=== PATIENT | female | born 1965 | race Asian ===

== ENCOUNTER 2018-01-09 13:50 | Inpatient (IN) | payer MEDICAID, OTHER ==
--- NOTE | 2018-01-09 14:23 | ED ---
General Adult HPI - General Chief complaint: Psychiatric Symptoms Stated complaint: Mental Health Time Seen by Provider: 01/09/18 13:50 Source: police, RN notes reviewed Mode of arrival: wheelchair Limitations: no limitations - History of Present Illness Initial comments: Patient was brought in by the police because she was under court order petition to be evaluated patient has a history of bipolar and we were told prior to arrival she was in a manic phase. Patient would not patient was very uncooperative swearing and being very sexually inappropriate throughout my interview but I was unable to ascertain any more reliable history from the patient. Patient did however deny any physical complaints and denies any drug use or alcohol use but she did so with quite a bit of profanity. - Related Data Home Medications Medication Instructions Recorded Confirmed Unable To Assess [Unable to Assess] 01/09/18 01/09/18 Allergies Allergy/AdvReac Type Severity Reaction Status Date / Time ibuprofen [From Motrin IB] Allergy Unknown Verified 01/09/18 14:35 iodine Allergy Unknown Verified 01/09/18 14:35 Review of Systems ROS Statement: Those systems with pertinent positive or pertinent negative responses have been documented in the HPI. ROS Other: All systems not noted in ROS Statement are negative. Past Medical History Past Medical History: No Reported History History of Any Multi-Drug Resistant Organisms: None Reported Past Surgical History: Section, Tubal Ligation Past Psychological History: Bipolar, Schizophrenia Smoking Status: Former smoker Past Alcohol Use History: Occasional Past Drug Use History: Marijuana General Exam - General Exam Comments Initial Comments: GENERAL: Patient is well-developed and well-nourished. Patient is nontoxic and well- hydrated and is in no acute distress. ENT: Neck is soft and supple. No significant lymphadenopathy is noted. Oropharynx is clear. Moist mucous membranes. Neck has full range of motion without eliciting any pain. EYES: The sclera were anicteric and conjunctiva were pink and moist. Extraocular movements were intact and pupils were equal round and reactive to light. Eyelids were unremarkable. PULMONARY: Unlabored respirations. Good breath sounds bilaterally. CARDIOVASCULAR: There is a regular rate and rhythm without any murmurs gallops or rubs. ABDOMEN: Soft and nontender with normal bowel sounds. SKIN: Skin is clear with no lesions or rashes and otherwise unremarkable. NEUROLOGIC: Patient is alert and oriented difficult to tell orientation because she won't answer my questions directly however it appears that she is aware she is in a hospital unaware of who she is. Cranial nerves II through XII are grossly intact. Motor and sensory are also intact. Normal speech, volume and content. Symmetrical smile. MUSCULOSKELETAL: Normal extremities with adequate strength and full range of motion. LYMPHATICS: No significant lymphadenopathy is noted PSYCHIATRIC: Patient was in a manic state yelling and screaming profanities the whole time I was in the room. Limitations: no limitations Course Vital Signs 01/09/18 01/09/18 13:51 13:55 Temperature 98.8 F Pulse Rate 106 H Respiratory 22 Rate Blood Pressure 170/78 O2 Sat by Pulse 98 Oximetry Procedures - Restraint - Face to Face Restraint Occurrence 1 Patient's Immediate Situation: Endangers others' safety, Endangers staff safety Patient's Reaction to the Intervention: Uncooperative, Angry, Hostile, Belligerent, Bizarre Patient's Medical & Behavioral Condition: Bizarre behavior Need to Continue or Terminate Restraint or Seclusion: Continue Face to Face Eval of Restraint Date: 01/09/18 Face to Face Eval of Restraint Time: 15:40 Medical Decision Making - Lab Data Lab Results 01/09/18 Range/Units 15:39 Urine Opiates Screen Not Detected (NotDetected) Ur Oxycodone Screen Not Detected (NotDetected) Urine Methadone Screen Not Detected (NotDetected) Ur Propoxyphene Screen Not Detected (NotDetected) Ur Barbiturates Screen Not Detected (NotDetected) U Tricyclic Antidepress Not Detected (NotDetected) Ur Phencyclidine Scrn Not Detected (NotDetected) Ur Amphetamines Screen Not Detected (NotDetected) U Methamphetamines Scrn Not Detected (NotDetected) U Benzodiazepines Scrn Not Detected (NotDetected) Urine Cocaine Screen Not Detected (NotDetected) U Marijuana (THC) Screen Detected H (NotDetected) Disposition Clinical Impression: Bipolar disease, manic Disposition: ADMITTED IP TO THIS HOSP Referrals: None,Stated [Primary Care Provider] - 1-2 days Time of Disposition: 16:24
[2018-01-09] MEDS ORDERED: ZIPRASIDONE 20 MG VIAL IM STA (15:09)
[2018-01-09] MEDS ORDERED: LORazepam 2 MG/ML INJ IM STA (15:09)
[2018-01-09 16:14] LABS: Amphetamine Screen,Urine Not Detected (NotDetected); Barbiturate Screen,Urine Not Detected (NotDetected); Benzodiazepines Screen,Urine Not Detected (NotDetected); Cocaine Screen,Urine Not Detected (NotDetected); Methadone Screen, Urine Not Detected (NotDetected); Opiate Screen,Urine Not Detected (NotDetected); Oxycodone Screen, Urine Not Detected (NotDetected); Phencyclidine Screen,Urine Not Detected (NotDetected); Tricyclic Antidepressant,Urine Not Detected (NotDetected); Urn Cannabinoid Scrn Detected (NotDetected)
[2018-01-09] MEDS ORDERED: LORazepam 1 MG TAB PO PRN (19:20)
[2018-01-09] MEDS ORDERED: MAGNESIUM HYDROXIDE 2,400 MG/10 ML CUP PO PRN (19:20)
[2018-01-09] MEDS ORDERED: MAG HYDROX/AL HYDROX/SIMETH 30 ML CUP PO PRN (19:20)
[2018-01-09] MEDS ORDERED: HALOPERIDOL LACTATE 5 MG/ML 1 ML VIAL IM PRN (19:24)
[2018-01-09] MEDS ORDERED: LORazepam 2 MG/ML INJ IM PRN (19:26)
--- NOTE | 2018-01-10 00:41 | P.MDCNMH ---
History of Present Illness H&P Date: 01/10/18 Chief Complaint: Acute agitation 52-year-old female with history of bipolar disorder with manic phase protein by police due to agitation and restlessness. Patient was very loud yelling and screaming in the emergency department and had to be restrained and sedated. She did not provide much of the history. Attempt was made to evaluate the patient further mental health unit but patient was sedated and not able to proceed to obtain any significant medical history this point. Most history obtained through reviewing the chart for emergency department. It was described the patient was very agitated and very restless was using profanity and was refusing to provide much of the history. Blood work laboratory was done on her urine drug screen was positive only for marijuana. Her vital signs are stable. Rest of the blood work is pending at this point. Review of Systems ROS unobtainable: due to mental status Past Medical History Past Medical History: No Reported History History of Any Multi-Drug Resistant Organisms: None Reported Past Surgical History: Section, Tubal Ligation Past Psychological History: Bipolar, Schizophrenia Smoking Status: Former smoker Past Alcohol Use History: Occasional Past Drug Use History: Marijuana Medications and Allergies Home Medications Medication Instructions Recorded Confirmed Type No Known Home Medications 01/09/18 01/09/18 History Allergies Allergy/AdvReac Type Severity Reaction Status Date / Time ibuprofen [From Motrin IB] Allergy Unknown Verified 01/09/18 19:27 iodine Allergy Unknown Verified 01/09/18 19:27 Physical Exam Vitals: Vital Signs Temp Pulse Pulse Resp BP BP Pulse Ox 01/09/18 19:21 98.1 F 69 16 148/63 01/09/18 18:47 97.8 F 01/09/18 18:21 94 16 151/81 97 01/09/18 13:55 170/78 01/09/18 13:51 98.8 F 106 H 22 98 Intake and Output 01/09/18 01/09/18 01/10/18 14:59 22:59 06:59 Output Total 200 Balance -200 Output: Urine 200 Straight 200 Other: Weight 74.843 kg Patient is uncooperative and prefers to sleep No physical exam is possible and this point of time Cranial Nerve Examination - Cranial Nerves Cranial Nerve I- Olfactory: Intact Cranial Nerve II- Optic: Intact Cranial Nerve III- Oculomotor: Intact (Cannot be obtained precisely due to mental status) Cranial Nerve IV- Trochlear: Intact Cranial Nerve V- Trigeminal: Intact Cranial Nerve - Abducens: Intact Cranial Nerve VII- Facial: Intact Cranial Nerve VIII- Auditory: Intact Cranial Nerve IX- Glossopharyngeal: Intact Cranial Nerve X- Vagus: Intact Cranial Nerve XI- Accessory: Intact Cranial Nerve XII- Hypoglossal: Intact Results Labs: Abnormal Lab Results - Last 24 Hours (Table) 01/09/18 Range/Units 15:39 U Marijuana (THC) Screen Detected H (NotDetected) Assessment and Plan Plan: Bipolar disorder with acute manic state Currently patient sedated Admitted under psych had to mental health unit we will monitor response to therapy I will order a basic blood work for the patient, CBC, CMP, TSH, A1c Urine drug screen only positive for memory 1 We will continue to monitor patient clinically course We will reevaluate in a.m. Time with Patient: Less than 30
[2018-01-10] MEDS ORDERED: NICOTINE 21MG/24HR PATCH TRANSDERM SCH (09:00)
[2018-01-10 10:17] LABS: ALT 44 U/L (9-52); AST 24 U/L (14-36); Albumin 4.4 g/dL (3.5-5.0); Alkaline Phosphatase 64 U/L (38-126); Anion Gap 11 mmol/L; Blood Urea Nitrogen 15 mg/dL (7-17); Calcium 9.5 mg/dL (8.4-10.2); Carbon Dioxide 26 mmol/L (22-30); Chloride 102 mmol/L (98-107); Cholesterol 253 mg/dL (<200); Glucose 176 mg/dL (74-99); HDL Cholesterol 64 mg/dL (40-60); LDL Cholesterol,Calculated 159 mg/dL (0-99); Potassium 3.8 mmol/L (3.5-5.1); Sodium 139 mmol/L (137-145); Total Bilirubin 1.6 mg/dL (0.2-1.3); Total Protein 7.6 g/dL (6.3-8.2); Triglycerides 148 mg/dL (<150)
[2018-01-10 10:47] LABS: Basophils % (A) 0 %; Eosinophils # (A) 0.1 k/uL (0-0.7); Eosinophils % (A) 1 %; HCT 45.1 % (34.0-46.0); HGB 14.7 gm/dL (11.4-16.0); Lymphocytes # (A) 2.7 k/uL (1.0-4.8); Lymphocytes % (A) 25 %; MCH 29.4 pg (25.0-35.0); MCHC 32.7 g/dL (31.0-37.0); MCV 89.9 fL (80.0-100.0); Mean Platelet Volume 6.8; Monocytes # (A) 0.6 k/uL (0-1.0); Monocytes % (A) 6 %; Neutrophils # (A) 7.1 k/uL (1.3-7.7); Neutrophils % (A) 66 %; Platelet Count 429 k/uL (150-450); RBC 5.01 m/uL (3.80-5.40); RDW 13.4 % (11.5-15.5); WBC 10.7 k/uL (3.8-10.6)
[2018-01-10] MEDS ORDERED: ZIPRASIDONE 20 MG VIAL IM PRN (12:17)
[2018-01-10] MEDS: ARIPiprazole 10 MG TAB PO SCH (12:42)
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
[2018-01-10 19:33] LABS: Hemoglobin A1C 6.3 % (4.0-6.0)
[2018-01-11] MEDS: ARIPiprazole 10 MG TAB PO SCH (09:34)
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
[2018-01-11] MEDS ORDERED: cefTRIAXone 500 MG VIAL IM STA (19:02)
[2018-01-11] MEDS ORDERED: metroNIDAZOLE 500 MG TAB PO STA (19:03)
[2018-01-11] MEDS ORDERED: AZITHROMYCIN 500 MG TAB PO STA (19:06)
[2018-01-11] MEDS ORDERED: EMTRICITABINE/TENOFOVIR 200MG/300MG PO SCH (19:15)
[2018-01-11] MEDS: MELATONIN 3 MG TABLET PO SCH (20:51)
[2018-01-12] MEDS ORDERED: EMTRICITABINE/TENOFOVIR 200MG/300MG PO SCH (09:00)
[2018-01-12] MEDS ORDERED: RALTEGRAVIR POTASSIUM 400 MG TABLET PO SCH (09:00)
[2018-01-12] MEDS: ARIPiprazole 10 MG TAB PO SCH (09:07)
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
[2018-01-12] MEDS: EMTRICITABINE/TENOFOVIR 200MG/300MG PO SCH (13:36)
[2018-01-12] MEDS: RALTEGRAVIR POTASSIUM 400 MG TABLET PO SCH ×2 (13:36→23:07)
[2018-01-12] MEDS: MELATONIN 3 MG TABLET PO SCH (23:10)
[2018-01-13] MEDS: ARIPiprazole 15 MG TAB PO SCH (09:59)
[2018-01-13] MEDS: RALTEGRAVIR POTASSIUM 400 MG TABLET PO SCH ×2 (09:59→21:28)
[2018-01-13] MEDS: EMTRICITABINE/TENOFOVIR 200MG/300MG PO SCH (09:59)
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
[2018-01-13] MEDS ORDERED: ARIPiprazole 400 MG VIAL (NO CHARGE) IM ONE (12:00)
[2018-01-13] MEDS: MELATONIN 3 MG TABLET PO SCH (23:57)
[2018-01-14] MEDS: ARIPiprazole 15 MG TAB PO SCH (08:43)
[2018-01-14] MEDS: EMTRICITABINE/TENOFOVIR 200MG/300MG PO SCH (08:44)
[2018-01-14] MEDS: RALTEGRAVIR POTASSIUM 400 MG TABLET PO SCH ×2 (08:44→20:54)
--- NOTE | 2018-01-14 15:16 | P.PN ---
Progress Note - Text Progress Note Date: 01/14/18 Patient says she is less edgy and attributes it to not drinking coffee today. She says she is not the person to take prescribed medications as she believes in natural oils. She reports the abilify is making her feel tired but says she will continue to take it as prescribed. She says she was supposed to attend a balony festival in [place] and she was supposed to come down like a hot dog nia in a balloon. She reports good sleep and appetite. She denies current symptoms of depression. She is 52 year old woman. She appears her stated age in fair grooming and hygiene. She maintains good eye contact. No abnormal movements noted. Her speech and thought process are pressured, tangential with flight of ideas. Her mood is reported as elated and affect appropriate. She denies current auditory or visual hallucinations. She denies paranoia. She is alert and oriented x 4. Her insight and judgment are improving. Bipolar disorder Continue abilify
[2018-01-14 18:21] VITALS: BMI 27.4
[2018-01-14] MEDS: MELATONIN 3 MG TABLET PO SCH (22:08)
[2018-01-15] MEDS: EMTRICITABINE/TENOFOVIR 200MG/300MG PO SCH (09:19)
[2018-01-15] MEDS: RALTEGRAVIR POTASSIUM 400 MG TABLET PO SCH ×2 (09:19→21:01)
[2018-01-15 11:19] LABS: Appearance,Urine Clear (Clear); Bilirubin,Urine Negative (Negative); Blood,Urine Negative (Negative); Color,Urine Yellow; Glucose,Urine (UA) 3+ (Negative); Ketones,Urine Negative (Negative); Leukocyte Esterase,Urine Negative (Negative); Nitrite,Urine Negative (Negative); PH, Urine 6.5 (5.0-8.0); Protein,Urine Trace (Negative); Specific Gravity,Urine 1.017 (1.001-1.035); Urobilinogen,Urine <2.0 mg/dL (<2.0)
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
[2018-01-15] MEDS: MELATONIN 3 MG TABLET PO SCH (22:32)
[2018-01-16] MEDS ORDERED: EMTRICITABINE/TENOFOVIR 200MG/300MG PO SCH (09:31)
[2018-01-16] MEDS ORDERED: RALTEGRAVIR POTASSIUM 400 MG TABLET PO SCH (09:32)
[2018-01-16] MEDS: EMTRICITABINE/TENOFOVIR 200MG/300MG PO SCH ×2 (10:45→10:47)
[2018-01-16] MEDS: RALTEGRAVIR POTASSIUM 400 MG TABLET PO SCH ×3 (10:46→20:45)
--- NOTE | 2018-01-16 13:56 | P.PN ---
Progress Note - Text Progress Note Date: 01/16/18 Interval History: Patient is a 52-year-old female who was seen today and she reports that her thoughts are more organized and she feels that she is not on edge is much and thinks the medications of been helpful. She reports that she is feeling less irritable and has been attending groups and has been able to stay in them. She states that she has been sleeping longer than is reported. Patient states that her thoughts are not racing and that she has had good interactions on the phone with her mother. Patient reports no side effects from the medication. Mental Status: Appearance/Attitude: Patient is casually dressed, makes good eye contact and was cooperative. Behavior: Patient did not exhibit any psychomotor agitation or retardation. Speech/Language: Patient's speech is much less pressured, normal volume and rhythm and she is coherent Thought Process: Patient is more goal-directed, less evidence of flight of ideas and no loose associations Thought Content: Patient denies any auditory or visual hallucination and no delusions or grandiose ideation was elicited. Patient has been sleeping 3 to less then 1 hour a night although the patient reports that she sleeping more than that. She reports that her appetite is good and feels that her thoughts are more organized and she is not feeling as edgy as she was before. Patient does feel that the medication has been beneficial. She is still unable to tell me how she got taken for [facility] to [facility]. Suicidal/Homicidal Ideation: Patient denies any current suicidal or homicidal ideation Sensorium/Cognition: Patient is alert and oriented to person, place, and time and her recent and remote memory are grossly intact Mood/Affect: Patient's mood is less irritable and less labile and her affect is appropriate to her mood Insight/Judgment: Patient's insight and judgment remained fair, she has no explanation for why she was taken for [facility] to an inpatient psychiatric facility Assessment: Patient appears less labile, she is less irritable and her speech is much less pressured and she is better able to focus on the conversation. She reports that she feels the medication has been helpful to her and feels that her thoughts are more organized and she is less on edge. Patient's sleep continues to remain poor but her appetite is good. She has been attending groups and activities. Plan: Patient will continue on Abilify 20 mg daily she received an injection of long-acting Abilify on Tuesday and will need to have 2 weeks of oral medication since that time. Patient is also on melatonin 3 mg at bedtime. Patient and I discussed continued hospitalization and possible discharge later in the week and she was agreeable with this plan.
[2018-01-16] MEDS: MELATONIN 3 MG TABLET PO SCH (20:45)
--- NOTE | 2018-01-16 22:32 | P.PN ---
Subjective Progress Note Date: 01/16/18 Principal diagnosis: I was notified by RN to evaluate abnormal labs Patient was seen and examined currently she is calm with appropriate behavior. She is cooperating with her nursing staff currently denies any chest pain or trouble breathing Objective - Vital Signs Vital signs: Vital Signs Temp 97.9 F 01/15/18 00:26 Pulse 75 01/16/18 02:55 Resp 16 01/16/18 02:55 BP 165/86 01/16/18 02:55 Pulse Ox 98 01/12/18 05:45 - Exam Constitutional: vital signs stable, Not in acute distress, pleasant, conversant Lungs: Clear to auscultation bilaterally, clear to percussion, normal respiratory effort no use of accessory muscles Cardiovascular: Regular rate and rhythm, no murmurs, no gallops, no rubs, no peripheral edema Gastrointestinal: Soft, no tenderness to palpation, no palpable hepatosplenomegally, bowel sounds positive Extremities: No digital cyanosis or clubbing, peripheral pulses palpable and equal over bilateral radial arteries and dorsalis pedis artery, no calf muscle tenderness Psych: Alert, oriented to place, person and time, appropriate affect, fair judgment Neuro: Cranial nerves II-XII grossly intact, no focal sensory deficits to touch - Labs CBC & Chem 7: 01/10/18 09:36 01/10/18 09:36 Assessment and Plan Assessment: 52-year-old female with history of bipolar disorder patient was admitted to the mental health unit due to acute manic episode. Initial basic blood work was sent, currently notified by RN to assess abnormal labs. Patient since admission is more calm now, she is cooperating with nursing staff and compliant with her medications. Plan: I had long discussion with the patient regarding 3 new findings based on her blood work She indicated that 18-20 years ago she was told that she has hypertension and diabetes Currently her labs indicated hyperlipidemia, prediabetes, and hypertension on her vital signs Her blood pressure systolic is ranging between 145 and 160s Based on her 10 year cardiovascular disease risk which is 6.3% I recommended to her to start moderate intensity statin with atorvastatin 20 mg along with lifestyle modification, exercising, healthy diet, and weight loss For her hypertension I recommended starting a low-dose calcium channel sofia amlodipine along with lifestyle modification watching her salt intake, weight loss and exercising Her A1c is 6.3% which is in the range of prediabetes I recommended against the patient lives so modification with weight loss and low-carb diet, along with starting low-dose metformin I recommended that she follows up closely with her PCP and to repeat labs in 4- 6 to assess improvement in cholesterol, liver function among others I also recommended starting low-dose baby aspirin for primary prevention she verbalized understanding of the above planbut deferred starting any medications to follow-up with her PCP, she prefers to use essential oils as she indicated this been helping her for the past 18 years I clearly explained to the patient that I disagree with counting on essential oils, but I did urge her to follow up closely with her PCP to discuss management of her hyperlipidemia, hypertension, and prediabetes along with explaining her 10 year cardiovascular disease risk factors and the above results. Patient only agreeable to start baby aspirin
[2018-01-17] MEDS: MELATONIN 3 MG TABLET PO SCH (00:10)
[2018-01-17] MEDS: ASPIRIN 81 MG PO SCH (09:17)
[2018-01-17] MEDS: EMTRICITABINE/TENOFOVIR 200MG/300MG PO SCH (09:18)
[2018-01-17] MEDS: RALTEGRAVIR POTASSIUM 400 MG TABLET PO SCH ×2 (09:19→21:18)
--- NOTE | 2018-01-17 12:49 | P.PN ---
Progress Note - Text Progress Note Date: 01/17/18 Interval History: Patient is a 52-year-old female who was seen today and she reports that she falls asleep easily at night but then awakens is documented that the patient slept 1-1/2 hours last night. Patient reported that she feels the medication has been helpful and she is not feeling as irritable and states that her thoughts are clear. Patient states that she's been attending groups and activities and enjoys them. Mental Status:Appearance/Attitude: Patient is casually dressed, makes good eye contact and was cooperative. Behavior: Patient did not exhibit any psychomotor agitation or retardation. Speech/Language: Patient's speech was spontaneous and much less pressure, she spoke in a normal volume and rhythm and was coherent Thought Process: Patient was more goal-directed there is no evidence of loose association or flight of ideas and she denied racing thoughts Thought Content: Patient denied any auditory or visual hallucinations there is no paranoid ideation the patient was not grandiose. Patient stated that she doesn't sleep well here because she is a light sleeper and due to menopause. Patient slept for 1-1/2 hours last night. Patient has been attending groups and activities and reports that they've been helpful and she reports no side effects from the medication and states that she thinks that it has been helpful to her. Suicidal/Homicidal Ideation: Patient denies any current suicidal or homicidal ideation Sensorium/Cognition: Patient is alert and oriented to person, place, time and her recent and remote memory are grossly intact Mood/Affect: Patient's mood remains labile as when I discussed with the patient not being discharged tomorrow she began crying and sobbing and left the room, her affect is appropriate to her mood Insight/Judgment: Patient's insight and judgment are improving Assessment: Patient is improving, she is no longer exhibiting pressured speech and flight of ideas and states that her thoughts are no longer racing, however the patient continues to have a labile mood is evidenced a day when she began crying and sobbing in my office because she was being discharged tomorrow. Patient's insight into her illness and the need for medication is improving. Patient continues to only sleep for 1-1/2 hours at night. Patient has been attending groups and activities and reports no side effects from her medication. Plan: Patient will continue on Abilify 20 mg orally she has 5 days into a 14 day course of oral medication after receiving long-acting injectable Abilify. Patient continues on melatonin to target her sleep. Patient continues to require hospitalization to further stabilize her mood.
[2018-01-18] MEDS: MELATONIN 3 MG TABLET PO SCH ×2 (00:34→22:39)
[2018-01-18] MEDS: ACETAMINOPHEN TAB 325 MG TAB PO PRN (04:10)
[2018-01-18] MEDS: RALTEGRAVIR POTASSIUM 400 MG TABLET PO SCH ×2 (08:00→21:05)
[2018-01-18] MEDS: ASPIRIN 81 MG PO SCH (08:00)
[2018-01-18] MEDS: EMTRICITABINE/TENOFOVIR 200MG/300MG PO SCH (08:00)
--- NOTE | 2018-01-18 16:55 | P.PN ---
Progress Note - Text Progress Note Date: 01/18/18 Interval History: Patient is a 52-year-old female was seen today and she reports that she is feeling better, she reports that she slept for about 4 hours last night. She reports that she has continued to attend the groups and finds them helpful. Patient discussed that she sees the medication has helped her was able to discuss the fact that she has never been able to sit still in the past and has constantly been up and active sleeping maybe 2-3 hours a night. She states that the only time she slept more was when she was on a much more rigid schedule when her children were younger and living with her. Patient complained that she feels kind of slowed and we discussed this. Patient reported no side effects from the medication and stated that she is not focused on when she leaves the hospital. Mental Status: Appearance/Attitude: Patient is casually dressed, makes good eye contact and was cooperative. Behavior: Patient does not exhibit any psychomotor agitation or retardation. Speech/Language: Patient's speech is spontaneous and normal volume and rhythm and she is coherent Thought Process: Patient is goal-directed no evidence of loose association or flight of ideas Thought Content: Patient denies any auditory or visual hallucination and no delusions or paranoid ideation or elicited. Patient discussed today the fact that she has always been sleeping 2-3 hours at night is always up doing things and states the only time she slept more than that the past was when she was on schedule when her children were younger. Patient states that she feels her thinking is clear and more focused and for the first time she is able to sit still. Patient states she slept about 4 hours last night and her appetite is good. Suicidal/Homicidal Ideation: Patient denies any current suicidal or homicidal ideation Sensorium/Cognition: Patient is alert and oriented to person, place, time and recent and remote memory are grossly intact Mood/Affect: Patient's mood is more stable and her affect is appropriate Insight/Judgment: Patient's insight and judgment are improving the patient discussed benefits of the medication and we reviewed her diagnosis Assessment: Patient continues to improve, her speech is no longer pressured, she is more goal-directed and states that she is actually able to sit still. Patient states that she's never slept for more than 2-3 hours a night, she was on a schedule with her children. Patient states that she is been attending groups and activities. Patient slept for 4 hours last night and also complained about feeling slowed. I reviewed her diagnosis with her and the symptoms and response to treatment. Plan: Patient continues on Abilify 20 mg and melatonin 3 mg for sleep. Patient and I discussed that she needs to sleep for at least 6 hours a night for at least 2 nights prior to her being discharged. Patient was agreeable with this plan.
[2018-01-19] MEDS: RALTEGRAVIR POTASSIUM 400 MG TABLET PO SCH ×2 (08:36→22:24)
[2018-01-19] MEDS: EMTRICITABINE/TENOFOVIR 200MG/300MG PO SCH (08:36)
[2018-01-19] MEDS: ASPIRIN 81 MG PO SCH (08:36)
[2018-01-19] MEDS: ACETAMINOPHEN TAB 325 MG TAB PO PRN (09:30)
--- NOTE | 2018-01-19 12:59 | P.PN ---
Progress Note - Text Progress Note Date: 01/19/18 Interval History: Patient is a 52-year-old female who was seen today and she was actually napping in her room. Patient states that moving the Abilify to 7: 00 at night has been beneficial as she was able to sleep last night and is not feeling as sleepy during the day. Patient states that she slept for 6 hours last night and that's what is documented by staff. Patient reports that she is getting use to feeling slowed and states that she's never been able to lie down and rest during the day or even sit quietly during the day. Patient reports that her thoughts are not racing. Patient denied any suicidal thoughts currently. She reports no side effects from the medication. Mental Status: Appearance/Attitude: Patient is dressed casually, makes good eye contact and was cooperative. Behavior: Patient does not display any psychomotor agitation or retardation. Speech/Language: Patient's speech is spontaneous of normal volume and rhythm and she is coherent Thought Process: Patient is goal-directed no evidence of loose association or flight of ideas Thought Content: Patient denies any auditory or visual hallucinations and no delusions or paranoid ideation are elicited. Patient states that she is feeling calm her and is able to lie down during the day and actually nap, states that she is able to sit quietly during the day. Patient states that she slept well last night for 6 hours and her appetite remains good. She states that she no longer feels like she needs to keep doing things and be constantly moving. She states that she's no longer having racing thoughts and is able to focus better. Suicidal/Homicidal Ideation: Patient denies any current suicidal or homicidal ideation Sensorium/Cognition: Patient is alert and oriented to person, place, and time and her recent and remote memory are grossly intact. Mood/Affect: Patient's mood is less labile and her affect is appropriate Insight/Judgment: Patient's insight and judgment are fair Assessment: Patient states with the change to the Abilify at 7 in the evening she slept better last night and feels better during the day. Patient is no longer exhibiting pressured speech, flight of ideas and her mood is much less labile and there is no irritability evident on the unit. Patient states that she slept for 6 hours last night and continues to attend groups and activities and continues to find them helpful. Patient is better able to discuss her diagnosis and states that she sees benefit in the medication and treatment. She reports no side effects from the medication Plan: Patient continue on Abilify 20 mg at 7 PM, patient and I discussed should she sleep for 6 hours tonight that we would consider discharge on Tuesday. Patient at that time will need to take another 6 days of oral Abilify to complete the 2 day course after her injection of long-acting Abilify. Patient was agreeable with this plan.
[2018-01-19] MEDS: MELATONIN 3 MG TABLET PO SCH (22:23)
[2018-01-20] MEDS: ACETAMINOPHEN TAB 325 MG TAB PO PRN (01:31)
[2018-01-20 06:21] VITALS: BP 161/76; PULSE 72; RESP 16; TEMP 97.8
[2018-01-20] MEDS: RALTEGRAVIR POTASSIUM 400 MG TABLET PO SCH (09:00)
[2018-01-20] MEDS: EMTRICITABINE/TENOFOVIR 200MG/300MG PO SCH (09:00)
[2018-01-20] MEDS: ASPIRIN 81 MG PO SCH (09:01)
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
== END 2018-01-20 12:50 | disposition home or self-care (01) | DRG 885 ==
LOC: EC 13:50 → 3MHU 18:44
PROVIDERS: ADMIT Psychiatry & Neurology Psychiatry; ATTEND Psychiatry & Neurology Psychiatry
DX: F31.9 Bipolar disorder, unspecified (principal); F20.9 Schizophrenia, unspecified; Z78.1 Physical restraint status; Z79.899 Other long term (current) drug therapy; Z87.891 Personal history of nicotine dependence; R45.1 Restlessness and agitation; Z88.6 Allergy status to analgesic agent; Z88.8 Allergy status to other drugs, medicaments and biological substances; Z62.810 Personal history of physical and sexual abuse in childhood; Z91.410 Personal history of adult physical and sexual abuse
CPT/HCPCS: 80053; 80061; 80306; 81003; 82075; 83036; 84443; 85025; 96372; 99285